=== PATIENT | male | born 1955 | race American Indian/Alaskan Native ===

== ENCOUNTER 2017-11-28 14:30 | Emergency (ER) | payer BC ==
[2017-11-28] MEDS ORDERED: BOOSTRIX IM ONE (15:30)
[2017-11-28] MEDS ORDERED: MOTRIN PO ONE (15:30)
--- NOTE | 2017-11-28 15:35 | Emergency Department Report ---
ED Laceration HPI - HPI Occurred When: Today Location: Upper Extremity Severity: mild Tetanus Status: Not up to Date Laceration Symptoms: Yes Pain, No Foreign Body Sensation, No Numbness, No Weakness Other History: This is a 63-year-old male nontoxic, well nourished in appearance , no acute signs of distress presents to the ED with c/o of left middle finger laceration that occurred today about 2 hours ago. Patient was changing his tire and cut his finger against the rim. Denies any fever, chills, nausea, vomiting, chest and shortness of breath. Patient he is not up-to-date with tetanus. Patient denies any drug allergies or past medical history. <KIMANI SANTORO - Last Filed: 11/28/17 15:31> - HPI Other History: 62 yo (not 63) <EVER KARIMI - Last Filed: 11/28/17 21:14> - HPI Chief Complaint: Wound/Laceration Stated Complaint: LEFT HAND FINGER LACERATION Time Seen by Provider: 11/28/17 15:30 ED Review of Systems ROS: Stated complaint: LEFT HAND FINGER LACERATION Other details as noted in HPI Constitutional: denies: chills, fever Eyes: denies: eye pain, eye discharge, vision change ENT: denies: ear pain, throat pain Respiratory: denies: cough, shortness of breath, wheezing Cardiovascular: denies: chest pain, palpitations Endocrine: no symptoms reported Gastrointestinal: denies: abdominal pain, nausea, diarrhea Genitourinary: denies: urgency, dysuria Musculoskeletal: denies: back pain, joint swelling, arthralgia Skin: denies: rash, lesions Neurological: denies: headache, weakness, paresthesias Psychiatric: denies: anxiety, depression Hematological/Lymphatic: denies: easy bleeding, easy bruising <KIMANI SANTORO - Last Filed: 11/28/17 15:31> ROS: Stated complaint: LEFT HAND FINGER LACERATION Other details as noted in HPI <EVER KARIMI - Last Filed: 11/28/17 21:14> ED Past Medical Hx - Past Medical History Previous Medical History?: No Hx HIV: No - Surgical History Past Surgical History?: No - Social History Smoking Status: Never Smoker Substance Use Type: None <KIMANI SANTORO - Last Filed: 11/28/17 15:31> <EVER KARIMI - Last Filed: 11/28/17 21:14> - Medications Home Medications: Home Medications Medication Instructions Recorded Confirmed Last Taken Type HYDROcodone/APAP 5-325 [[place] 1 each PO Q6HR PRN #24 tablet 05/31/16 Unknown Rx 5/325] Ibuprofen [Motrin] 600 mg PO Q8H PRN #30 tablet 11/28/17 Unknown Rx Sulfamethoxazole/Trimethoprim 1 each PO Q12H #14 tablet 11/28/17 Unknown Rx [Bactrim DS TAB] Laceration Physical Exam - Exam General: Vital signs noted. No distress. Alert and acting appropriately. GENERAL: The patient is a well-developed, well-nourished in no apparent distress. Patient is alert and acting appropriately for age. Alert and oriented 3, no apparent distress, normal gait, atraumatic. HEENT: Head is normocephalic and atraumatic. PERRL, Extraocular muscles are intact. Pupils are equal, round, and reactive to light and accommodation. Nares appeared normal. Mouth is well hydrated and without lesions. Mucous membranes are moist. Posterior pharynx clear of any exudate or lesions. Mouth is well hydrated and without lesions. Tonsils not erythematous or swollen. Uvula midline. Tongue elevated. Mucous members are moist. Posterior pharynx clear, no exudate or lesions. Patent airways. NECK: Supple. No carotid bruits. No lymphadenopathy or thyromegaly.nontender. No meningitic signs are noted. LUNGS: Clear to auscultation. Non labor breathing. No intercostal retractions. Symmetrical with respiration, no wheezing, no rales, or crackles. HEART: Regular rate and rhythm without murmur, rubs or gallops. No reproducible. S1, S2 present, regular rate and rhythm without murmur, no rubs, no gallops. ABDOMEN: Soft, nontender, and nondistended. Positive bowel sounds. No hepatosplenomegaly was noted. No guarding or rebound tenderness, negative epigastric bruit. Negative psoas sign, negative dc sign, negative McBurneys sign EXTREMITIES: Without any cyanosis, clubbing, rash, lesions or edema. Peripheral pulses intact. Capillary refill less than 2 seconds. Full range of motion bilaterally. NEUROLOGIC: Cranial nerves II through XII are grossly intact. Alert and oriented x 3. Normal gait. Symmetrical strength and sensation. Reflexes 2+ throughout. Cerebellar testing normal. GCS score of 15. PSYCHIATRIC: Normal affect with no suicidal or homicidal ideations. Skin: 1 cm superficial laceration to the distal left middle finger. Wound Length (cm): 1 Laceration Location: Upper Extremity (left middle finger) Laceration Exam: Yes Normal Distal CMS, No Foreign Body, No Exposed Tendon, Vessel, or Nerve, No Tendon Injury <KIMANI SANTORO - Last Filed: 11/28/17 15:31> - Exam General: Vital signs noted. No distress. Alert and acting appropriately. <EVER KARIMI - Last Filed: 11/28/17 21:14> ED Course Vital Signs 11/28/17 14:49 Temperature 98.6 F Pulse Rate 68 Respiratory 16 Rate Blood Pressure 148/79 O2 Sat by Pulse 94 Oximetry - Reevaluation(s) Reevaluation #1: 11/28/17 15:33 Patient is speaking in full sentences with no signs of distress noted. <KIMANI SANTORO - Last Filed: 11/28/17 15:31> Vital Signs 11/28/17 11/28/17 11/28/17 14:49 15:43 15:47 Temperature 98.6 F Pulse Rate 68 75 Respiratory 16 18 Rate Blood Pressure 148/79 136/85 O2 Sat by Pulse 94 100 Oximetry <EVER KARIMI - Last Filed: 11/28/17 21:14> - Laceration /Wound Repair Left Finger Wound Location: upper extremity (left middle finger) Wound Length (cm): 1 Wound's Depth, Shape: superficial Wound Explored: clean Irrigated w/ Saline (ccs): 40 Betadine Prep?: Yes Wound Repaired With: Dermabond Layer Closure?: No Sterile Dressing Applied?: Yes Progress: Area was washed with soap and water prior to laceration.. Under sterile field, I used Betadine to clean the area. I then used 40 mL of normal saline to flush the area. I then used Dermabond to close the laceration. I then applied a sterile 4 x 4 with tape. Minimal bleeding noted but is under control. Patient tolerated procedure well with no signs of distress. <KIMANI SANTORO - Last Filed: 11/28/17 15:31> ED Medical Decision Making - Medical Decision Making This is 62-year-old male that presents with laceration. Patient is stable and was examined by me. Dermabond has been applied to laceration. Patient received tetanus and Motrin. Patient discharged with Bactrim. Patient was instructed to proper wound care. At time of discharge, the patient does not seem toxic or ill in appearance. No acute signs of distress noted. Patient agrees to discharge treatment plan of care. No further questions noted by the patient. <KIMANI SANTORO - Last Filed: 11/28/17 15:31> Critical care attestation.: If time is entered above; I have spent that time in minutes in the direct care of this critically ill patient, excluding procedure time. <KIMANI SANTORO - Last Filed: 11/28/17 15:31> Critical care attestation.: If time is entered above; I have spent that time in minutes in the direct care of this critically ill patient, excluding procedure time. <EVER KARIMI - Last Filed: 11/28/17 21:14> ED Disposition Is pt being admited?: No Does the pt Need Aspirin: No <KIMANI SANTORO - Last Filed: 11/28/17 15:31> <EVER KARIMI - Last Filed: 11/28/17 21:14> Disposition: DC-01 TO HOME OR SELFCARE Condition: Stable Instructions: Sulfamethoxazole/Trimethoprim (By mouth), Ibuprofen (By mouth), Laceration (ED), Skin Adhesive Care (ED) Additional Instructions: Follow-up with a primary care doctor in 3-5 days or if symptoms worsen and continue return to emergency room as soon as possible. Prescriptions: Ibuprofen [Motrin] 600 mg PO Q8H PRN #30 tablet PRN Reason: Pain Sulfamethoxazole/Trimethoprim [Bactrim DS TAB] 1 each PO Q12H #14 tablet Referrals: PRIMARY MD ROSEANNE [Primary Care Provider] - 3-5 Days ILEANA RUTLEDGE MD [Staff Physician] - 3-5 Days [facility] [Outside] - 3-5 Days Forms: Work/School Release Form(ED)
[2017-11-28 16:02] VITALS: BP 136/85
== END 2017-11-28 16:02 | disposition home or self-care (01) ==
LOC: ED 14:30
DX: S61.213A Laceration without foreign body of left middle finger without damage to nail, initial encounter (principal); W26.9XXA Contact with unspecified sharp object(s), initial encounter; Y93.89 Activity, other specified; Y92.89 Other specified places as the place of occurrence of the external cause; Y99.8 Other external cause status
CPT/HCPCS: 90471; 90715; 99282

== ENCOUNTER 2018-10-18 17:08 | Emergency (ER) | payer BC, OTHER ==
[2018-10-18 17:29] VITALS: BP 182/83
[2018-10-18] MEDS ORDERED: IBUPROFEN PO ONE (20:18)
--- NOTE | 2018-10-18 20:43 | Emergency Department Report ---
ED Lower Extremity HPI - General Chief Complaint: Extremity Injury, Lower Stated Complaint: RIGHT FOOT PAIN/SWOLLEN Time Seen by Provider: 10/18/18 19:33 Source: patient Mode of arrival: Ambulatory Limitations: No Limitations - History of Present Illness Initial Comments: This is a 63-year-old male nontoxic, well nourished in appearance, no acute signs of distress presents to the ED with c/o of right ankle pain 3 days. Patient stated that he twisted his ankle while slipping on steps. Patient denies any other trauma. Patient denies any numbness, tingling, fever, chills, nausea, vomiting, chest pain, shortness of breath, headache, stiff neck. Patient denies any joint swelling or joint redness. Patient denies decreased range of motion. Patient stated has decreased gait due to pain. Patient denies any allergies or significant past medical history. MD Complaint: ankle injury Injury: Ankle: Right Severity: mild Severity scale (0 -10): 8 Improves With: immobilization Worsens With: weight bearing, movement, palpation Associated Symptoms: able to partially bear weight, ambulatory. denies: snap/pop sensation, swelling, numbness, tingling, unable to bear weight - Related Data Previous Rx's Medication Instructions Recorded Last Taken Type HYDROcodone/APAP 5-325 [[place] 1 each PO Q6HR PRN #24 tablet 05/31/16 Unknown Rx 5/325] Ibuprofen [Motrin] 600 mg PO Q8H PRN #30 tablet 11/28/17 Unknown Rx Sulfamethoxazole/Trimethoprim 1 each PO Q12H #14 tablet 11/28/17 Unknown Rx [Bactrim DS TAB] Ibuprofen [Motrin] 600 mg PO Q8H PRN #20 tablet 10/18/18 Unknown Rx Allergies Allergy/AdvReac Type Severity Reaction Status Date / Time No Known Allergies Allergy Unverified 05/26/16 14:23 ED Review of Systems ROS: Stated complaint: RIGHT FOOT PAIN/SWOLLEN Other details as noted in HPI Constitutional: denies: chills, fever Eyes: denies: eye pain, eye discharge, vision change ENT: denies: ear pain, throat pain Respiratory: denies: cough, shortness of breath, wheezing Cardiovascular: denies: chest pain, palpitations Endocrine: no symptoms reported Gastrointestinal: denies: abdominal pain, nausea, diarrhea Genitourinary: denies: urgency, dysuria Musculoskeletal: arthralgia. denies: back pain, joint swelling Skin: denies: rash, lesions Neurological: denies: headache, weakness, paresthesias Psychiatric: denies: anxiety, depression Hematological/Lymphatic: denies: easy bleeding, easy bruising ED Past Medical Hx - Past Medical History Previous Medical History?: No Hx HIV: No - Surgical History Past Surgical History?: No - Social History Smoking Status: Never Smoker Substance Use Type: None - Medications Home Medications: Home Medications Medication Instructions Recorded Confirmed Last Taken Type HYDROcodone/APAP 5-325 [[place] 1 each PO Q6HR PRN #24 tablet 05/31/16 Unknown Rx 5/325] Ibuprofen [Motrin] 600 mg PO Q8H PRN #30 tablet 11/28/17 Unknown Rx Sulfamethoxazole/Trimethoprim 1 each PO Q12H #14 tablet 11/28/17 Unknown Rx [Bactrim DS TAB] Ibuprofen [Motrin] 600 mg PO Q8H PRN #20 tablet 10/18/18 Unknown Rx ED Physical Exam - General Limitations: No Limitations General appearance: alert, in no apparent distress - Head Head exam: Present: atraumatic, normocephalic - Eye Eye exam: Present: normal appearance - Neck Neck exam: Present: normal inspection, full ROM - Extremities Exam Extremities exam: Present: normal inspection, full ROM, tenderness, normal capillary refill. Absent: joint swelling, calf tenderness - Expanded Lower Extremity Exam Right Hip exam: Present: normal inspection, full ROM Upper Leg exam: Present: normal inspection, full ROM Knee exam: Present: normal inspection, full ROM Lower Leg exam: Present: normal inspection, full ROM Ankle exam: Present: normal inspection, full ROM, tenderness. Absent: swelling, abrasion, laceration, ecchymosis, deformity, crepidus, dislocation, erythema, anterior draw sign Foot/Toe exam: Present: normal inspection, full ROM. Absent: tenderness, swelling, abrasion, laceration, ecchymosis, deformity, crepidus, dislocation, erythema, amputation, puncture wound, foreign body, calcaneal tenderness, tenderness at base of 5th metatarsal, nail avulsion, subungual hematoma Neuro vascular tendon exam: Present: no vascular compromise Gait: Positive: observed and limited by pain - Back Exam Back exam: Present: normal inspection, full ROM - Neurological Exam Neurological exam: Present: alert, oriented X3 - Psychiatric Psychiatric exam: Present: normal affect, normal mood - Skin Skin exam: Present: warm, dry, intact, normal color. Absent: rash ED Course Vital Signs 10/18/18 10/18/18 17:26 20:24 Temperature 98 F Pulse Rate 73 Respiratory 18 16 Rate Blood Pressure 182/83 O2 Sat by Pulse 98 Oximetry - Reevaluation(s) Reevaluation #1: 10/18/18 20:45 Patient is speaking in full sentences with no signs of distress noted. ED Lower Extremity MDM - Medical Decision Making This is a 63-year-old male that presents with right ankle sprain. Patient is stable and was examined by me. I referred patient to an orthopedic doctor for further evaluation for possible MRI. X-ray has been obtained and dictated by the radiologist. Patient is notified of the x-ray report with noted by the patient. Patient does have normal gait with no tenderness and no joint swelling. No ecchymosis. no joint redness or swelling. Not warm to touch. No signs of cellulites present. Patient received cheri wrap and crutches and was educated by RN how to use crutches. Patient was instructed to RICE therapy. Patient received Motrin for pain. Patient is discharged with Motrin. At time of discharge, the patient does not seem toxic or ill in appearance. No acute signs of distress noted. Patient agrees to discharge treatment plan of care. No further questions noted by the patient. Critical care attestation.: If time is entered above; I have spent that time in minutes in the direct care of this critically ill patient, excluding procedure time. ED Disposition Clinical Impression: Right ankle sprain Qualifiers: Encounter type: initial encounter Involved ligament of ankle: unspecified ligament Qualified Code(s): S93.401A - Sprain of unspecified ligament of right ankle, initial encounter Disposition: TO HOME OR SELFCARE Is pt being admited?: No Does the pt Need Aspirin: No Condition: Stable Instructions: Ankle Sprain (ED), RICE Therapy (ED), Crutch Instructions (ED) Additional Instructions: Follow-up with a orthopedic doctor in 3-5 days or if symptoms worsen and continue return to emergency room as soon as possible. Prescriptions: Ibuprofen [Motrin] 600 mg PO Q8H PRN #20 tablet PRN Reason: Pain Referrals: PRIMARY CARE, [Primary Care Provider] - 3-5 Days CURTIS DO MD [Staff Physician] - 3-5 Days [facility] [Outside] - 3-5 Days [facility] [Outside] - 3-5 Days Forms: Work/School Release Form(ED)
--- NOTE | 2018-10-18 21:38 | XRay Report ---
FINAL REPORT EXAM: XR FOOT 3+V RT HISTORY: right ankle/foot pain TECHNIQUE: 3 views right foot PRIORS: None. FINDINGS: No fracture or dislocation identified. Joint spaces are within normal limits. No radiopaque foreign b apolinar seen. No soft tissue abnormality identified. IMPRESSION: Negative foot series
--- NOTE | 2018-10-18 21:40 | XRay Report ---
FINAL REPORT EXAM: XR ANKLE 3+V RT HISTORY: right ankle/foot pain TECHNIQUE: Three views right ankle PRIORS: None. FINDINGS: No fracture is identified. No dislocation seen. Ankle mortise is intact no evidence of joint space w idening. No erosive or degenerative changes are identified. No evidence of joint effusion. IMPRESSION: Negative ankle series
== END 2018-10-18 22:07 | disposition home or self-care (01) ==
LOC: ED 17:08
DX: S93.401A Sprain of unspecified ligament of right ankle, initial encounter (principal); X50.1XXA Overexertion from prolonged static or awkward postures, initial encounter; Y93.89 Activity, other specified; Y92.89 Other specified places as the place of occurrence of the external cause; Y99.8 Other external cause status
CPT/HCPCS: 99284